=== PATIENT | male | born 1985 | race African-American/Black ===

== ENCOUNTER 2016-08-13 03:15 | Emergency (ER) | payer OTHER ==
[~2016-08-13] VITALS: Ht 175.3 cm; Wt 129.1 kg
[2016-08-13 03:18] VITALS: BP 134/80; PULSE 93; RESP 16; O2SAT 96
--- NOTE | 2016-08-13 03:27 | ED.REPORT ---
HPI-Dental/Mouth Prob Date of Service Aug 13, 2016 ED Provider: Hector Mays MD Patient is a 31 year old male who presents to the ED complaining of right upper dental pain that began yesterday. He reports associated swelling on this side of his face. Patient states that he awoke from sleep at 2am this morning and was unable to fall back asleep due to his pain. Patient denies a fever, difficulty breathing, or difficulty swallowing. He reports taking Ibuprofen at home for the pain, with no relief. The patient does not have a dentist. Patient denies alcohol or illicit drug abuse. Nursing Notes Stated Complaint: DENTAL PAIN Chief Complaint: Dental Nursing Notes Reviewed: Yes Allergies: Coded Allergies: No Known Allergies (Verified Allergy, Unknown, 08/13/16) No Active Prescriptions or Reported Meds General Time Seen by MD: 03:26 Chief Complaint Tooth pain Hx Obtained From: Patient Arrived By: Walk-in Onset Occurred: Yesterday Symptom Duration: Since onset Quality: Painful Severity: Current: Moderate Severity: Maximum: Severe Recent Healthcare: No recent doctor visit, No recent hospitalization Similar Sx Previous: Yes Past Medical History Past Medical History healthy Reports history of childhood asthma Past Surgical History none Smoking History Current Every Day Smoker Social History Unemployed, previously with [employer], history of THC use, negative alcohol use lives at home with his , and three children 14-year-old daughter, thirteen old son, 3-year-old daughter. Alcohol Use: Denies alcohol use Drug Use: Denies drug use Other Social History: Good social support, , Local resident Occupation [employer] with girlfriend and children 03/26/2016 Ambulatory Status Independent Review of Systems Constitutional: Denies: Chills, Fever Ears / Nose / Throat: Reports: Toothache (and swelling), Denies: Mouth pain Respiratory: Denies: Shortness of breath GI: Denies: Dysphagia Complete sys rev & neg: except as marked. Physical Exam Initial Vital Signs Vital Signs (First) Date Time Temp Pulse Resp B/P Pulse Ox O2 Delivery O2 Flow Rate FiO2 08/13/16 03:18 36.0 93 16 134/80 96 Room Air Initial VS: Reviewed, Vital signs normal Skin: Warm, Dry, No cyanosis Neurologic: Alert, Oriented, Nonfocal Psychiatric: Mood/affect normal, Behavior normal, Normal thought content ENT: Airway patent Dental / Gums: Positive: Decay single tooth (right upper first molar has mild decay with associated dental abscess), Dental abscess No swelling of the pharynx or the floor of the mouth Neck: Supple, Non-tender General/Constitutional: Awake, Alert Appearance / Presentation: Positive: Obese, morbidly Head / Eyes: Atraumatic, Normocephalic, PERRL, Conjunctiva NL Respiratory / Chest: No respiratory distress, No stridor Cardiovascular: Heart rate NL, Regular rhythm Re-Eval/Medical Decision Med Decision/Clinical Course 31-year-old male with a large right upper jaw dental abscess. There is no extension into the soft tissues of the face or throat. He was given a prescription for penicillin and hydrocodone/APAP. He will follow up [facility] with a dentist for definitive treatment. Source of Hx: Old records Re-Evaluation/Progress : Time of Eval: 03:36 Patient Status: Condition improved Re-Evaluation/Progress Note: Patient has a dental abscess, which will be treat with antibiotics and pain mediation. Patient denies previously having trouble with narcotic abuse. Patient understands and agrees with the plan to be discharged home. Discharge instructions and follow-up discussed. All questions were addressed. Return to the ED warnings given. Counseled Regarding: Diagnosis, Need for follow-up, When/why to return to ED Discharge & Departure Primary Impression: Dental abscess Disposition: Home Discharge Condition All VS Reviewed: Yes Condition: Stable Patient Instructions: Dental Abscess (ED) Additional Instructions: Penicillin 500 mg by mouth 4 times a day, #40 dispensed. Hydrocodone/ acetaminophen 5/325, one to 2 tablets every 4-6 hours as needed for severe pain , #10 dispensed. Ibuprofen 400-600 mg 3-4 times daily as needed, to be purchased [id number]. You may mix these 2 medications. Follow up as soon as possible with a dentist for definitive treatment. Please see dental resource instruction sheet. Referrals: [facility] Attestation Portions of this note were transcribed by Cristina Valencia. I, Dr. Mays personally performed the history, physical exam and medical decision-making; I reviewed and confirmed the accuracy of the information in the transcribed note. Signed by: Alida Rodriguez, 08/13/2016 [id number] Hector Mays MD Aug 13, 2016 03:27 Cristina Valencia Aug 13, 2016 03:37
[2016-08-13] MEDS ORDERED: _HYDROcodone/APAP 5-325 mg Tablet PO PRN (03:40)
[2016-08-13 04:04] VITALS: BP 132/78; PULSE 90; RESP 14; O2SAT 97
[2016-08-13] MEDS ORDERED: _Penicillin VK 500 mg Tablet PO SCH (08:30)
== END 2016-08-13 04:05 | disposition home or self-care (01) ==
LOC: SED 03:15
DX: K04.7 Periapical abscess without sinus (principal); F17.200 Nicotine dependence, unspecified, uncomplicated